=== PATIENT | male | born 1965 | race Hispanic/Latino ===

== ENCOUNTER 2021-03-23 08:23 | Emergency (ER) | payer BC ==
[~2021-03-23] VITALS: Ht 170.2 cm; Wt 86.2 kg
[2021-03-23 08:30] VITALS: BP 150/97
[2021-03-23 09:27] VITALS: BP 138/86
[2021-03-23] MEDS ORDERED: IBUP-2070 PO (10:20)
== END 2021-03-23 10:28 | disposition home or self-care (01) ==
LOC: EDH 08:23
DX: S20.212A Contusion of left front wall of thorax, initial encounter (principal); W01.0XXA Fall on same level from slipping, tripping and stumbling without subsequent striking against object, initial encounter; Y93.89 Activity, other specified; Y92.89 Other specified places as the place of occurrence of the external cause; Y99.8 Other external cause status
CPT/HCPCS: 71101

== ENCOUNTER 2022-12-18 08:57 | Emergency (ER) | payer BC, OTHER ==
[~2022-12-18] VITALS: Ht 170.2 cm; Wt 83.9 kg
[~2022-12-18 08:57] MED LIST: IBUP-2070 PO
[2022-12-18 08:58] VITALS: BP 146/102
[2022-12-18] MEDS ORDERED: ACETAMINOPHEN 500 MG TABLET PO ONE (09:30)
[2022-12-18] MEDS ORDERED: NAPR-1084 PO (09:58)
[2022-12-18] MEDS ORDERED: KETOROLAC 30MG VIAL (30MG/ML) IM ONE (10:00)
== END 2022-12-18 10:37 | disposition home or self-care (01) ==
LOC: EDH 08:57
DX: M94.0 Chondrocostal junction syndrome [Tietze] (principal)
CPT/HCPCS: 99284; 71101; 96372; 93005; J1885